=== PATIENT | male | born 1975 | race Caucasian/White ===

== ENCOUNTER → 2024-10-29 16:22 | Outpatient (REF) | payer BC, SELFPAY | LOC: CLAB 16:22 | PROVIDERS: ATTENDING PHYSICIAN Physician Assistant | DX: J02.9 Acute pharyngitis, unspecified (principal) | CPT/HCPCS: 87070 ==

== ENCOUNTER → 2025-04-23 07:29 | Outpatient (REF) | payer BC, SELFPAY | LOC: PAVMRI 07:29 | PROVIDERS: ATTENDING PHYSICIAN Orthopaedic Surgery; FAMILY PHYSICIAN Physician Assistant Medical | DX: M25.511 Pain in right shoulder (principal) | CPT/HCPCS: 73221 ==

== ENCOUNTER 2025-06-05 06:18 | Outpatient (RCR) | payer BC, SELFPAY | END 2025-06-05 23:59 | disposition home or self-care (01) | LOC: RPT 06:18 | PROVIDERS: ATTENDING PHYSICIAN Orthopaedic Surgery | DX: M75.81 Other shoulder lesions, right shoulder (principal); Z73.6 Limitation of activities due to disability; M62.81 Muscle weakness (generalized); M25.511 Pain in right shoulder | CPT/HCPCS: 97110; 97161; 97530 ==

== ENCOUNTER 2025-07-03 06:44 | Outpatient (RCR) | payer BC, SELFPAY | END 2025-07-03 23:59 | disposition home or self-care (01) | LOC: RPT 06:44 | PROVIDERS: ATTENDING PHYSICIAN Orthopaedic Surgery | DX: Z47.89 Encounter for other orthopedic aftercare (principal); M75.81 Other shoulder lesions, right shoulder; Z73.6 Limitation of activities due to disability; M62.81 Muscle weakness (generalized); M25.511 Pain in right shoulder | CPT/HCPCS: 97110; 97112; 97140; 97535 ==

== ENCOUNTER 2025-07-24 07:04 | Outpatient (RCR) | payer BC, SELFPAY | END 2025-07-24 23:59 | disposition home or self-care (01) | LOC: RPT 07:04 | PROVIDERS: ATTENDING PHYSICIAN Orthopaedic Surgery | DX: Z47.89 Encounter for other orthopedic aftercare (principal); M75.81 Other shoulder lesions, right shoulder; Z73.6 Limitation of activities due to disability; M62.81 Muscle weakness (generalized); M25.511 Pain in right shoulder | CPT/HCPCS: 97110; 97112 ==